=== PATIENT | male | born 1950 | race Caucasian/White ===

== ENCOUNTER 2021-10-17 09:22 | Outpatient (CLI) | payer MEDICARE, OTHER | END 2021-10-17 09:23 | disposition home or self-care (01) | LOC: CT 09:22 | PROVIDERS: ATTEND Ophthalmology | DX: D48.1 Neoplasm of uncertain behavior of connective and other soft tissue (principal) | CPT/HCPCS: 70481; 82565 ==

== ENCOUNTER 2022-03-08 12:56 | Outpatient (CLI) | payer MEDICARE | END 2022-03-08 12:57 | disposition home or self-care (01) | LOC: CT 12:56 | PROVIDERS: ATTEND Otolaryngology Plastic Surgery within the Head & Neck | DX: L98.8 Other specified disorders of the skin and subcutaneous tissue (principal); J34.89 Other specified disorders of nose and nasal sinuses ==

== ENCOUNTER 2022-05-04 08:32 | Outpatient (CLI) | payer MEDICARE ==
[2022-05-04] MEDS ORDERED: Iopamidol 370 76% 100 ML VIAL ONE (09:03)
== END 2022-05-04 08:33 | disposition home or self-care (01) ==
LOC: CT 08:32
PROVIDERS: ATTEND Internal Medicine Hematology & Oncology
DX: C83.31 Diffuse large B-cell lymphoma, lymph nodes of head, face, and neck (principal)
CPT/HCPCS: 71260; 74177; 82565; Q9967